=== PATIENT | female | born 1980 | race Caucasian/White ===

== ENCOUNTER 2023-03-22 03:22 | Emergency (ER) | payer OTHER, SELFPAY ==
[2023-03-22] VITALS (30 sets, daily range): BP systolic 83–154; BP diastolic 50–98; PULSE 58–86; RESP 10–21; TEMP 36.9; O2SAT 94–100
--- NOTE | ~2023-03-22 | CT_ITS ---
EXAMINATION: CTA chest PE abdomen pel DATE: 03/22/2023 04:55 INDICATION: Chest and abdominal pain with vomiting TECHNIQUE: Computed tomography (CT) pulmonary angiogram of the chest was performed with 100 mL Omnipa que-350 intravenous contrast. Additional 3D reconstructions utilizing coronal maximum intensity proje ction (MIP) were performed. CT of the abdomen and pelvis was performed with intravenous contrast util izing the same contrast bolus following a short delay. Automated exposure control and iterative recon struction technique were employed. The dose-length product was 794.93 mGy-cm. COMPARISON: None FINDINGS: Chest: Excellent contrast opacification of the pulmonary arteries. There is mild streak artifact from dense contrast in the superior vena cava and right atrium. Mild scattered respiratory motion artifact. No p ulmonary embolism. There is mosaic attenuation throughout the lungs with diffuse groundglass opacitie s throughout the lungs with a few scattered small regions of relative sparing. Calcified nodules in t he right lung along with calcified right hilar lymph nodes consistent with old granulomatous disease. Heart size is normal. No leftward deviation of the ventricular septum to suggest right heart strain. No pericardial effusion. Thoracic aorta is normal in caliber with no dissection. Borderline enlargem ent of the central pulmonary arteries which could be seen with pulmonary arterial hypertension. No pa thologically enlarged thoracic lymphadenopathy. Small sliding-type hiatal hernia. Abdomen/pelvis: Mild intra and extra hepatic biliary ductal dilation with common bile duct measuring up to 11 mm in m aximal diameter without evident distal obstructing stone or mass. There are however multiple gallston es within the nondilated gallbladder. There is mild edematous gallbladder wall thickening versus mini mal pericholecystic fluid. There are a few splenic calcifications consistent with old granulomatous d isease. Pancreas, bilateral adrenal glands and left kidney are normal. Small regions of cortical scar ring at the right kidney likely sequela prior infection or less likely infarction. There are also at least 4 small right renal stones the largest measuring up to 5 mm. No other ureteral stones, left norman al stones or hydronephrosis. Bowels including the appendix are normal. Bladder and anteverted uterus are normal. There are few small anechoic follicles at the c largest on the right measuring 1.8 cm. No free intraperitoneal gas or fluid. No pathologically enlarged abdominal or pelvic lymphadenopathy. M ild polyarticular osteoarthritis of the proximal lumbar facet joints at the bilateral hip and sacroil iac joints. IMPRESSION: 1. Mosaic attenuation throughout the lungs which can be seen with acute or subacute infection, mild p ulmonary edema, partially expiratory phase of imaging with small regions of air trapping related to s mall airway disease or chronic thromboembolic disease although there are no discrete pulmonary emboli identified. 2. Borderline enlargement of the central pulmonary arteries suggestive of pulmonary arterial hyperten tyrel which differential also includes obstructive pulmonary disease, hypoventilation syndrome, mitral valve stenosis and chronic thromboembolic disease. 3. Mild intra and extrahepatic biliary ductal dilation with gallstones within the gallbladder but wit hout evident distal obstructing stone or mass. Correlate with liver function tests and consider furth er evaluation with MRCP. 4. Mild edematous wall thickening versus small amount of pericholecystic fluid at the nondilated gall bladder to more specifically suggest acute cholecystitis. Differential would also include sequela of liver disease, heart failure or other cause of elevated right heart pressures or other cause of gener alized edema forming states. Reviewed, dictated and vicky
--- NOTE | 2023-03-22 03:29 | ECG_ITS ---
Measurements Intervals [place] Rate: 68 P: 59 VT: 121 QRS: 75 QRSD: 86 T: 63 QT: 381 QTc: 405 Interpretive Statements SINUS RHYTHM NORMAL ECG NO PREVIOUS ECG AVAILABLE FOR COMPARISON Electronically Signed On 03-22-2023 14:04:36 [employer] by Sean Sierra M.D.
[2023-03-22] MEDS: PROCHLORPERAZINE EDISYLATE 10 MG/2 ML VIAL IV PUSH (03:34)
[2023-03-22] MEDS: MORPHINE SULFATE (*CRX) 4 MG/ML INJ IV PUSH (03:34)
[2023-03-22] MEDS: SODIUM CHLORIDE 0.9% IV 1,000 ML 999 ML IV CONT ×2 (03:34→06:56)
--- NOTE | 2023-03-22 03:34 | ED.GENADULT ---
HPI - General Adult General Chief complaint: Abdominal Pain Stated complaint: nausea, vomiting, abd pain Time Seen by Provider: 03/22/23 03:24 History of Present Illness HPI narrative: Is a 43-year-old female who presents to emergency department with chief complaint of nausea and vomiting. Patient also reports started having pain in the lower rib section the radiates to her back patient states that she has had episodes of pain before but never had pain this bad and never had significant nausea vomiting patient reports she ate [employer] earlier this evening the patient reports some that she is scheduled to have a oophorectomy later this month. Patient denies fever reports no diarrhea reports she had a normal bowel movement prior to arrival in the emergency department. Patient reports a prior surgical history significant for . And reports that she is undergoing chronic pain management for low back pain. Related Data Allergies Allergy/AdvReac Type Severity Reaction Status Date / Time No Known Allergies Allergy Verified 08/13/15 16:05 Review of Systems Review of Systems: A 10 system review of systems was completed on the patient and is negative except for what is stated in the HPI. Nursing and ancillary documentation was reviewed. Exam Narrative: GENERAL: Well-appearing, well-nourished, and in no acute distress. HEAD: Normocephalic, atraumatic. EYES: PERRLA and EOMI. ENT: Nares clear, no rhinorrhea or epistaxis. Mucous membranes moist. NECK: Supple. CHEST: Clear to auscultation. No respiratory distress. HEART: Regular rate and rhythm. No murmur heard. Normal peripheral pulses. ABDOMEN: Soft, right upper quadrant tenderness, nondistended, normal active bowel sounds. EXTREMITIES: Normal range of motion. No edema. SKIN: Warm, dry, no rash. NEURO: No focal deficits. Alert and oriented x3. PSYCH: Normal mood and affect. Course Vital Signs Vital signs: Vital Signs Temperature 36.9 C 03/22/23 03:23 Pulse Rate 63 03/22/23 03:23 Respiratory Rate 15 03/22/23 03:23 Blood Pressure 154/98 H 03/22/23 03:23 Pulse Oximetry 100 03/22/23 03:23 Oxygen Delivery Room Air 03/22/23 03:23 Temperature 36.9 C 03/22/23 03:23 Pulse Rate 60 03/22/23 07:01 Respiratory Rate 12 03/22/23 07:01 Blood Pressure 97/66 L 03/22/23 07:00 Pulse Oximetry 97 03/22/23 07:01 Oxygen Delivery Room Air 03/22/23 03:23 Medical Decision Making Vital Signs Vital Signs: Vital Signs Temperature 36.9 C 03/22/23 03:23 Pulse Rate 63 03/22/23 03:23 Respiratory Rate 15 03/22/23 03:23 Blood Pressure 154/98 H 03/22/23 03:23 Pulse Oximetry 100 03/22/23 03:23 Oxygen Delivery Room Air 03/22/23 03:23 Temperature 36.9 C 03/22/23 03:23 Pulse Rate 60 03/22/23 07:01 Respiratory Rate 12 03/22/23 07:01 Blood Pressure 97/66 L 03/22/23 07:00 Pulse Oximetry 97 03/22/23 07:01 Oxygen Delivery Room Air 03/22/23 03:23 Lab Data 03/22/23 03:31 03/22/23 03:31 Labs: Lab Results 03/22/23 03/22/23 Range/Units 03:31 05:07 WBC 11.1 H (4.5-10.0) K/mm3 RBC 4.16 L (4.2-5.4) M/mm3 Hgb 13.7 (12.0-15.0) g/dL Hct 42.0 (37.0-47.0) % MCV 101.0 H (80-100) fl MCH 32.9 (26-34) pg MCHC 32.6 (32-36) g/dl RDW 14.2 (11.5-14.5) % Plt Count 224 (150-375) k/mm3 MPV 11.3 H (7.4-10.4) fl Immature Gran % (Auto) 0.4 (0-0.5) % Neut % (Auto) 70.3 (45.5-73.1) % Lymph % (Auto) 17.1 L (18.3-44.2) % [place] % (Auto) 8.9 H (2.6-8.5) % Eos % (Auto) 2.8 (0-4.4) % Baso % (Auto) 0.5 (0.2-1.2) % Lymph # (Auto) 1.90 (0.9-3.2) K/mm3 [place] # (Auto) 1.0 H (0.1-0.6) K/mm3 Eos # (Auto) 0.3 (0-0.3) K/mm3 Baso # (Auto) 0.1 (0.0-0.1) K/mm3 Abs Immat Gran (auto) 0.04 H (0.00-0.031) K/mm3 Absolute Neuts (auto) 7.8 H (1.3-6.7) K/mm3 Absolute Nucleated RBC 0.0 (0.0-0.012) K/mm3 Nucleated RBC
[2023-03-22 03:38] LABS: Basophils Absolute Auto 0.1 K/mm3 (0.0-0.1); Basophils Percent Auto 0.5 % (0.2-1.2); Eosinophils Absolute Auto 0.3 K/mm3 (0-0.3); Eosinophils Percent Auto 2.8 % (0-4.4); Hemoglobin 13.7 g/dL (12.0-15.0); Immature Granulocyte Absolute 0.04 K/mm3 (0.00-0.031); Immature Granulocyte Percent A 0.4 % (0-0.5); Lymphocytes Percent Auto 17.1 % (18.3-44.2); Mean Corpuscular HGB Conc 32.6 g/dl (32-36); Mean Corpuscular Hemoglobin 32.9 pg (26-34); Mean Platelet Volume 11.3 fl (7.4-10.4); Monocytes Percent Auto 8.9 % (2.6-8.5); Neutrophils Absolute Auto 7.8 K/mm3 (1.3-6.7); Neutrophils Percent Auto 70.3 % (45.5-73.1); Platelet Count Result 224 k/mm3 (150-375); Red Blood Count 4.16 M/mm3 (4.2-5.4); Red Cell Distribution Width 14.2 % (11.5-14.5); White Blood Count 11.1 K/mm3 (4.5-10.0)
[2023-03-22 03:50] LABS: INR 0.9; Prothrombin Time 12.9 Seconds (11.1-14.7)
[2023-03-22 03:51] LABS: Partial Thromboplastin Time 28.6 SECONDS (22.3-36.8)
--- NOTE | 2023-03-22 03:52 | PC.NURSE ---
Pt aware of need for urine sample
[2023-03-22 03:59] LABS: Lactic Acid Reflex 1.2 mmol/L (0.7-2.0)
[2023-03-22 04:02] LABS: Alanine Aminotransferase 19 U/L (6-35); Albumin Level 4.1 g/dL (3.5-5.1); Alkaline Phosphatase 102 U/L (38-126); Anion Gap 8 mmol/L (8-16); Aspartate Amino Transferase 28 U/L (14-36); Bilirubin,Total 0.4 mg/dL (0.2-1.3); Blood Urea Nitrogen 9 mg/dL (7-17); Calcium 9.3 mg/dL (8.4-10.2); Carbon Dioxide 27 mmol/L (22-30); Chloride 106 mmol/L (98-107); Estimated CRCL calculation 84 ml/min; Estimated Glomerular Filt Rate > 60; Glucose 120 mg/dL (65-110); Lipase 66 U/L (23-300); Magnesium 2.2 mg/dL (1.6-2.3); Sodium 141 mmol/L (137-145)
[2023-03-22 04:13] LABS: NT Pro B Type Natriuretic Pept 161 pg/mL (19.9-100); Troponin I < 0.012 ng/mL (0.000-0.034)
[2023-03-22 05:27] LABS: Appearance Urine Clear (Clear); Bacteria Urine None Seen /hpf; Bilirubin Urine Negative (Negative); Blood Urine Trace (Negative); Color Urine Yellow (Yellow); Glucose Urine UA Negative (Negative); Ketones Urine Trace mg/dL (Negative); Leukocyte Esterase Ur Negative LEU/UL (Negative); Nitrate Urine Negative (Negative); Non Pathogenic Casts 0-2; Protein Urine Negative (Negative); RBC Urine 0-2 /hpf (0-2); Squamous Epithelial Cell Urine Occasional /hpf (Few); WBC Urine 0-5 /hpf; pH Urine 6.5 (5.0-9.0)
[2023-03-22 05:35] LABS: Specific Grav Ur 1.045 (1.001-1.035)
[2023-03-22 05:36] LABS: Add Urine Microscopic? YES
--- NOTE | 2023-03-22 06:48 | PC.NURSE ---
Dr Boss notified of hypotension. Orders received.
--- NOTE | 2023-03-22 06:54 | PC.NURSE ---
Patient's blood pressure was 83/50, notified Dr. Boss who verbally ordered 1L ns.
--- NOTE | 2023-03-22 07:10 | PC.NURSE ---
Report to CARINA Josue
== END 2023-03-22 08:03 | disposition home or self-care (01) ==
PROVIDERS: Emergency Provider Emergency Medicine
DX: K81.0 Acute cholecystitis (principal); R91.8 Other nonspecific abnormal finding of lung field
CPT/HCPCS: 36415; 71275; 74177; 80053; 81001; 81025; 83605; 83690; 83735; 83880; 84145; 84484; 85025; 85610; 85730; 93005; 96361; 96374; 96375; 99284; J0780; J2270; J7030; Q9967

== ENCOUNTER 2023-03-28 12:40 | Outpatient (CLI) | payer OTHER, SELFPAY ==
[2023-03-28 14:01] LABS: Amylase 68 U/L (30-110)
== END 2023-03-28 12:41 | disposition home or self-care (01) ==
LOC: ANHSURGERY 12:46
PROVIDERS: Visit Provider Surgery
DX: K81.1 Chronic cholecystitis (principal); Z01.818 Encounter for other preprocedural examination
CPT/HCPCS: 36415; 82150; 86850; 86900; 86901

== ENCOUNTER 2023-03-31 03:16 | Day surgery (SDC) | payer OTHER, SELFPAY ==
--- NOTE | 2023-03-27 14:59 | PC.NURSE ---
Report to the Outpatient Waiting Room, entrance under the green pavilion located off [facility], at time ___1000____ on date ___[id number]____. Planned Procedure Time: ____1200____. Time changes happen often and if your time is changed the preop area will call you the afternoon before. - You and your visitor will be asked to self-screen and do not enter if you have any COVID symptoms. - A mask is optional within the hospital at this time. Patients may have clear liquids (water, carbonated beverages, clear teas, apple juice) until 3 hours prior to surgery with a maximum of 20 ounces. - No food from midnight until time of surgery Take the following medications with a SIP of water the morning of surgery: Flagyl, Ciprofloxacin, Hydrocodone DO NOT STOP ANY OF YOUR OTHER PRESCRIPTION MEDICATIONS PRIOR TO SURGERY ?EXCEPT THE FOLLOWING Medications to discontinue per physician __ Md informed patient to not take Methotrexate until post surgery Date to take last dose Please no make-up, nail hebrew, hairspray, perfume, deodorant, or body powder the day of surgery. No jewelry (including any body piercings) or valuables the day of surgery, leave them at home. Please take a shower or bath the night before, or the morning of, surgery with an antibacterial soap. Wear comfortable, loose fitting clothing - Jewelry must be removed prior to entering the operating room. Rings and piercings that are not removed may be cut off. - The hospital will not accept responsibility for valuables. - Please leave all valuables, including medications, at home the day of surgery. If you are going home after surgery, a licensed recycler forklift driver truck driver must drive you home. - NO public transportation without another adult if you receive anesthesia. - We recommend that an adult stay with you for 24 hours following discharge. - We also recommend that you do not drive, make important decision, drink alcoholic beverages, or take any drugs that were not prescribed by your health care provider for at least 24 hours after your discharge time. Follow any additional instructions given to you from your surgeon. If you or anyone in your household have experienced Covid symptoms in the past week, please notify your surgeon or the nurse liaison at the phone number below for possible testing. Telephone instructions given to __Dorothea (patient) and asked if any additional questions and then verbalized understanding. Patient advised to call surgeon office or pre surgery nurse liaison [phone] if any additional questions.
[2023-03-27 15:08] VITALS: BMI 30.3
[2023-03-31] VITALS (9 sets, daily range): BP systolic 111–141; BP diastolic 64–87; PULSE 61–103; RESP 12–20; TEMP 36.1–36.8; O2SAT 100
--- NOTE | 2023-03-31 07:28 | WPDHPUPDATE1 ---
History and Physical Update Update Date/Time: 03/31/23 07:28 History and Physical has been reviewed, including an updated exam of the patient. There are NO changes in the patient's condition. Risks, benefits, and alternatives have been discussed and questions answered. Patient agrees to proceed with procedure.
[2023-03-31] MEDS: ACETAMINOPHEN 500 MG TABLET 1000 MG PO (10:15)
[2023-03-31] MEDS: KETOROLAC 15 MG/ML VIAL (*BKC) IV PUSH (10:42)
--- NOTE | 2023-03-31 11:16 | P.PNAN_ITS ---
Anes - Initial Pre Proc Eval Procedure: Operation Date: 03/31/23 12:00 Proposed Procedures p Laparoscopic Cholecystectomy - Nancy Topete MD Date/Time: 03/31/23 11:16 Surgeon: Nancy Topete MD Pre Op Diagnosis: Chronic Cholecystitis Patient Data Age: 43 Gender: F Height: 1.6 m Weight: 76.5 kg Last Vital Signs Temp 36.8 C 03/31/23 10:27 Pulse 80 03/31/23 10:27 Resp 16 03/31/23 10:27 BP 112/67 03/31/23 10:27 Pulse Ox 100 03/31/23 10:27 O2 Del Method Room Air 03/31/23 10:27 Allergies Allergy/AdvReac Type Severity Reaction Status Date / Time No Known Allergies Allergy Verified 03/31/23 10:11 Home Medications Medication Instructions Recorded Confirmed Type ciprofloxacin HCl 500 mg tablet 500 mg PO Q12H 10 days #20 tabs 03/22/23 03/27/23 Rx hydrocodone 7.5 mg-acetaminophen 1 tablet PO Q6H PRN pain 3 days 03/22/23 03/27/23 Rx 325 mg tablet #12 tabs metronidazole 500 mg tablet 500 mg PO Q8H 10 days #30 tabs 03/22/23 03/27/23 Rx ondansetron 4 mg disintegrating 4 mg PO Q8H PRN nausea and 03/22/23 03/27/23 Rx tablet vomiting #10 tabs methotrexate sodium 2.5 mg tablet 15 mg PO WEEKLY 03/27/23 03/27/23 History Patient hx anesthesia problems: none Family hx anesthesia problems: none Results Review: All pre-operative results and documents have been reviewed as part of the pre- operative evaluation. [facility] Surgical History Surgical History delivery delivered H/O LEEP History of tubal ligation Family History Family History Other Cancer Diabetes mellitus Social History Social History Smoking packs per day: 0.5 Smoking cigarettes per day: 10.0 Years smoked: 30 Smoking pack-years: 15.00 Smoking status: Current every day smoker Tobacco type: cigarettes Second hand tobacco smoke exposure: Yes Alcohol intake: never Substance use: current Substance use type: does not use Living arrangements: with family Spiritual care concerns: No Anes - Eval Final PreProcedure Day of Procedure 03/31/23 11:16 Patient weight: overweight Heart: regular rate and rhythm Lungs: decreased breath sounds Airway: Mallampati scale class II Neurological: alert and oriented Last oral intake: >/= 8 hours ASA classification: III Emergent: no Anesthetic plan: proceed Anesthesia type and monitoring: general ETT and standard monitoring Results Review: All pre-operative results and documents have been reviewed as part of the pre- operative evaluation. Informed Consent: The patient's anesthetic plan and its attendant risks and benefits were discussed with the patient/family/POA. Questions were solicited and answers provided to the satisfaction of the patient/family/POA.
[2023-03-31] MEDS: LACTATED RINGERS 1,000 ML 30 ML IV CONT ×2 (11:40→12:38)
[2023-03-31] MEDS: ceFAZolin 2 GM/D5W 50 ML 2 GM/50 ML BAG IVPB (11:42)
[2023-03-31] MEDS: BUPIVACAINE/EPINEPHRINE 0.5% 50 ML VIAL 30 ML INFILTRATE (12:02)
--- NOTE | 2023-03-31 12:39 | W.PM.PROC2 ---
Procedure Note - Detailed Date of Procedure 03/31/23 Pre-op Diagnosis chronic cholecystitis, cholelithiasis Post-op Diagnosis Same Procedure Performed Laparoscopic cholecystectomy Surgeon Nancy Topete MD Anesthesia General Indications 43-year-old female presented to the office complaining of postprandial right upper quadrant abdominal pain associated with nausea and vomiting. Workup including imaging significant for cholecystitis, cholelithiasis. Findings Cholecystitis with cholelithiasis Description of Procedure The patient was taken to the operating room placed in the supine position. After adequate induction of general anesthesia, the patient was prepped and draped in normal sterile fashion. A time-out was then performed to verify the patient's identity as well as the procedure being performed. I then made a 5 mm incision in the infraumbilical region. Through this, a Veress needle was placed into the peritoneal cavity and CO2 gas was then insufflated. After adequate pneumoperitoneum was achieved, the Veress needle was removed and a 5 mm optiview trocar was placed through this incision under direct visualization. I then placed the laparoscope through this trocar site and under direct visualization placed a further 12 mm subxiphoid port as well as 2 additional 5 mm ports in the right upper abdomen. The gallbladder was then identified and was noted to be moderately inflamed, distended, and full of gallstones. I was able to place a grasper at the dome of the gallbladder and this was retracted anterior and cephalad up over the liver. A 2nd retractor was then placed at the infundibulum and retracted laterally, this allowed visualization of the triangle of Calot. I then was able to visualize the cystic duct in its entirety from its proximal insertion into the gallbladder, to its distal junction with the common hepatic/common bile duct junction. At this point, I carefully skeletonized the proximal cystic duct with the [place] dissector. I then clipped and transected the proximal cystic duct. Next I visualized the cystic artery. Again the artery was skeletonized, clipped, and transected. I then used the Bovie cautery to take down the peritoneal attachments of the gallbladder off the liver bed. Once the gallbladder specimen was completely detached, an endo-pouch was placed through the 12 mm port site. I then placed the gallbladder specimen into the Endo pouch and removed the endo-pouch from the 12 mm port site. Of note, we did have to enlarge the 12 mm port slightly to allow extraction of the specimen. The specimen will now be sent to pathology for further review. I then copiously irrigated the right upper quadrant. Hemostasis was noted in the liver bed, the clips were noted to be in good position on both the cystic duct stump and the cystic artery stump. No other pathology was noted in the right upper quadrant. I then moved the laparoscope to the subxiphoid port. No iatrogenic injury or other pathology was noted in the lower abdomen. I then closed the 12 mm trocar site under direct visualization using the Herbie cone and 0 Vicryl suture. At this point, the abdomen was desufflated and all ports removed. All port sites were then closed with 4.O Monocryl subcuticular sutures. Dermabond was placed on each incision. The patient tolerated the procedure well, was extubated in the operating room postoperative and will be transferred to the recovery room in stable condition Estimated Blood Loss 10 Drains No Packing No Pathology Yes Complications No immediate complications Condition Stable Disposition PACU [facility] Billing Surgery - Charge Forward: Surgery Billing
[2023-03-31] MEDS: fentaNYL CITRATE INJ (*CRX) 100 MCG/2 ML VIAL 25 MCG IV PUSH ×6 (12:57→13:23)
--- NOTE | 2023-03-31 13:18 | SUR.PHASEI ---
1316: Simple mask removed.
[2023-03-31] MEDS: oxyCODONE HCL (*CRX) 5 MG TAB IR PO (14:05)
== END 2023-03-31 14:45 | disposition home or self-care (01) ==
PROVIDERS: Visit Provider Surgery
PROC: 0FT44ZZ Resection of Gallbladder, Percutaneous Endoscopic Approach (ICD-10-PCS; CPT 47562; principal; 2023-03-31 12:00)
DX: K80.10 Calculus of gallbladder with chronic cholecystitis without obstruction (principal); M06.9 Rheumatoid arthritis, unspecified; Z79.631 Long term (current) use of antimetabolite agent; F17.210 Nicotine dependence, cigarettes, uncomplicated
CPT/HCPCS: 47562; 88304; A9270; J0690; J1100; J1885; J2250; J2405; J2704; J3010; J7120

== ENCOUNTER 2023-04-11 10:04 | Outpatient (CLI) | payer OTHER, SELFPAY ==
--- NOTE | ~2023-04-11 | CT_ITS ---
EXAMINATION: CT abdomen wo con DATE: 04/11/2023 10:25 INDICATION: Upper abdominal pain TECHNIQUE: Computed tomography (CT) of the abdomen was performed without intravenous contrast. The do se-length product (DLP) was 245.48 mGy-cm. Automated exposure control and iterative reconstruction te chnique were employed. COMPARISON: 03/22/2023 FINDINGS: The lung bases are clear. The heart size is normal. There is a small amount of subcutaneous fluid anteriorly in the midline chest near the subxiphoid incision site. There is a questionable sma ll midline hernia at the site containing fat. Punctate calcifications in an otherwise normal spleen l ikely represent healed granulomatous disease. The liver, pancreas, and adrenal glands are normal. Lyric nges of interval cholecystectomy are noted. There is a trace amount of fluid in the gallbladder fossa . Stones of the left kidney upper pole measure up to 5 mm and are seen adjacent to an area of cortica l scarring. There is a 3 mm stone of the right kidney lower pole. The left kidney is unremarkable. Th ere are no pathologically enlarged abdominal lymph nodes. IMPRESSION: 1. Small amount of subcutaneous fluid anteriorly in the midline chest are the subxiphoid incision sit e with possible tiny incision site hernia containing fat. Reviewed, dictated and finalized at location B. E STAR IMPRESSION: 1. Small amount of subcutaneous fluid anteriorly in the midline chest are the s ubxiphoid incision site with possible tiny incision site hernia containing fat.
== END 2023-04-11 10:05 | disposition home or self-care (01) ==
PROVIDERS: Visit Provider Surgery
DX: R10.10 Upper abdominal pain, unspecified (principal)
CPT/HCPCS: 74150

== ENCOUNTER 2024-01-08 23:20 | Day surgery (SDC) | payer OTHER, SELFPAY ==
--- NOTE | ~2024-01-08 | XR_ITS ---
EXAMINATION: XR retrograde pyelo w/stent RT DATE: 01/09/2024 17:02 INDICATION: Right ureteral stone. TECHNIQUE: 4 intraoperative fluoroscopic views of the abdomen and pelvis were obtained. I was not pre sent. Fluoroscopy exposure time was 8 seconds. COMPARISON: CT abdomen pelvis 01/09/2024 FINDINGS: The right-sided retrograde pyelogram demonstrates mild hydronephrosis and hydroureter. The final images demonstrate a right internal ureteral stent in expected position. Surgical clips in the right upper quadrant are likely from cholecystectomy. IMPRESSION: 1. Right internal ureteral stent in expected position. Reviewed, dictated and finalized at location A.
--- NOTE | ~2024-01-08 | CT_ITS ---
CT of the Abdomen and Pelvis: Indication: Abdominal pain Technique: 2.5 mm axial scans were obtained through the abdomen and pelvis following intravenous adm inistration of 100 cc of Omnipaque 350. Dose reduction technique was used on this scan by utilizing a utomated exposure control and iterative reconstruction technique. The dose-length product (DLP) was 9 54.22 mGy-cm. COMPARISON: 04/11/2023 Findings: Scans through the lung bases are unremarkable. The liver, spleen, pancreas, adrenals and left kidney are within normal limits. Cholecystectomy clips are present. A few small nonobstructing right renal stones are present, measuring 3 mm. There is an area of cortical scarring at the upper pole the right kidney. There is a 6 x 4 mm stone at the distal right ureter/right UVJ, with mild right hydroureter.. No evidence of aortic aneurysm. No lymphadeno jessica. No bowel obstruction or bowel wall thickening. There is no evidence to suggest acute appendicitis. Images through the pelvis were performed. No adnexal mass seen. Urinary bladder otherwise unremarkabl e. No ascites. Impression: 6 x 4 mm distal right ureteral stone/right UVJ stone, with mild right hydroureter. A few additional small nonobstructing right renal stones are also present. Reviewed, dictated and finalized at location . Impression: 6 x 4 mm distal right ureteral stone/right UVJ stone, with mild right hydrouret er. A few additional small nonobstructing right renal stones are also present.
[2024-01-08 23:27] VITALS: BP 125/91; PULSE 87; RESP 20; TEMP 36.9; O2SAT 96
[2024-01-09] VITALS (10 sets, daily range): BP systolic 92–156; BP diastolic 60–97; PULSE 58–83; RESP 12–22; TEMP 36.3–36.7; O2SAT 94–100
[2024-01-09 05:50] LABS: Basophils Absolute Auto 0.1 K/mm3 (0.0-0.1); Basophils Percent Auto 0.5 % (0.2-1.2); Eosinophils Absolute Auto 0.3 K/mm3 (0-0.3); Eosinophils Percent Auto 2.4 % (0-4.4); Hematocrit 44.8 % (37.0-47.0); Hemoglobin 15.1 g/dL (12.0-15.0); Immature Granulocyte Absolute 0.09 K/mm3 (0.00-0.031); Immature Granulocyte Percent A 0.6 % (0-0.5); Lymphocytes Absolute Auto 2.81 K/mm3 (0.9-3.2); Mean Corpuscular HGB Conc 33.7 g/dl (32-36); Mean Corpuscular Hemoglobin 31.5 pg (26-34); Mean Corpuscular Volume 93.3 fl (80-100); Mean Platelet Volume 10.5 fl (7.4-10.4); Monocytes Absolute Auto 1.2 K/mm3 (0.1-0.6); Monocytes Percent Auto 8.3 % (2.6-8.5); Neutrophils Absolute Auto 9.6 K/mm3 (1.3-6.7); Neutrophils Percent Auto 68.2 % (45.5-73.1); Platelet Count Result 257 k/mm3 (150-375); Red Cell Distribution Width 12.2 % (11.5-14.5)
[2024-01-09 05:51] LABS: BEDSIDEPREGUCG Negative (Negative)
[2024-01-09 06:00] LABS: Alanine Aminotransferase 19 U/L (6-35); Albumin Level 3.9 g/dL (3.5-5.1); Alkaline Phosphatase 108 U/L (38-126); Anion Gap 8 mmol/L (4-12); Aspartate Amino Transferase 25 U/L (14-36); Bilirubin,Total 0.5 mg/dL (0.2-1.3); Blood Urea Nitrogen 10 mg/dL (7-17); Calcium 8.6 mg/dL (8.4-10.2); Carbon Dioxide 24 mmol/L (22-30); Chloride 104 mmol/L (98-107); Estimated CRCL calculation 86 ml/min; Estimated Glomerular Filt Rate > 60; Glucose 114 mg/dL (65-110); Lipase 70 U/L (23-300); Potassium 3.7 mmol/L (3.4-5.0); Sodium 136 mmol/L (137-145)
[2024-01-09 06:14] LABS: Add Urine Microscopic? YES; Appearance Urine Cloudy (Clear); Bacteria Urine None Seen /hpf; Bilirubin Urine Negative (Negative); Blood Urine 3+ (Negative); Color Urine Dark Yellow (Yellow); Glucose Urine UA Negative (Negative); Ketones Urine Trace mg/dL (Negative); Leukocyte Esterase Ur Trace LEU/UL (Negative); Mucus Urine Present /lpf; Nitrate Urine Negative (Negative); Protein Urine 1+ mg/dL (Negative); RBC Urine 51-100 /hpf (0-2); Specific Grav Ur 1.027 (1.001-1.035); Squamous Epithelial Cell Urine Few /hpf (Few); WBC Urine 21-50 /hpf (0-3); pH Urine 5.5 (5.0-9.0)
--- NOTE | 2024-01-09 07:16 | ED.ABDPAIN ---
HPI - Abdominal Pain General Chief Complaint: Abdominal Pain Stated Complaint: abd pain Time Seen by Provider: 01/09/24 06:59 History of Present Illness HPI narrative: 43-year-old female history of laparoscopic cholecystectomy and ovarian cysts presented to the emergency department with sudden onset right lower quadrant abdominal pain since last night. Patient was lying down in bed which she started noticing a sudden onset pain in her right lower quadrant gradually got worse. She has been feeling some fevers and chills but no measurable temperature at home. No associated nausea vomiting, constipation. Does feel like she is having some urgency with incomplete bladder emptying. Has a history of ovarian cysts but more so on the left side. No laparoscopic procedures on her ovaries. Was otherwise in her normal state of health. No chest pain, shortness a breath, headache, vision changes, dysuria, hematuria, vaginal discharge vaginal bleeding. Denies any chance of . Related Data Home Medications Medication Instructions Recorded Confirmed norethindrone (contraceptive) 0.35 mg 01/09/24 mg tablet Allergies Allergy/AdvReac Type Severity Reaction Status Date / Time adhesive tape Allergy Intermediate Rash Verified 01/09/24 13:42 Review of Systems Review of Systems: As reviewed above in HPI [facility] Surgical History Surgical History delivery delivered H/O LEEP History of tubal ligation Family History Family History Other Cancer Diabetes mellitus Social History Social History Smoking packs per day: 0.5 Smoking cigarettes per day: 10.0 Years smoked: 30 Smoking pack-years: 15.00 Smoking status: Current every day smoker Tobacco type: cigarettes Second hand tobacco smoke exposure: Yes Alcohol intake: never Substance use: never Substance use type: does not use Living arrangements: with family Spiritual care concerns: No Exam Narrative: GENERAL: Well appearing, in pain but not in acute distress HEAD: [Normocephalic, atraumatic.] EYES: [PERRLA and EOMI.] ENT: Nares clear, no rhinorrhea or epistaxis. Mucous membranes moist. NECK: Supple. CHEST: [Clear to auscultation. No respiratory distress.] HEART: [Regular rate and rhythm]. No murmur heard. [Normal peripheral pulses.] ABDOMEN: [Soft, nondistended], tender to palpation right lower quadrant with positive psoas and obturator sign, [No rigidity or guarding] no suprapubic tenderness, no left-sided tenderness or guarding. EXTREMITIES: Normal range of motion. [No edema.] SKIN: Warm, dry, no rash. NEURO: [No focal deficits]. Alert and oriented [x3.] PSYCH: [Normal mood and affect.] Course Vital Signs Vital signs: Vital Signs Temperature 36.9 C 01/08/24 23:27 Pulse Rate 87 01/08/24 23:27 Respiratory Rate 20 01/08/24 23:27 Blood Pressure 125/91 H 01/08/24 23:27 Pulse Oximetry 96 01/08/24 23:27 Oxygen Delivery Room Air 01/08/24 23:27 Temperature 36.7 C 01/09/24 10:57 Pulse Rate 68 01/09/24 10:57 Respiratory Rate 22 H 01/09/24 10:57 Blood Pressure 92/60 L 01/09/24 10:57 Pulse Oximetry 94 01/09/24 10:57 Oxygen Delivery Room Air 01/08/24 23:27 MDM - Abdominal Pain MDM Narrative Medical decision making narrative: 43-year-old female presenting with right lower quadrant abdominal pain sudden-onset this last night. She is afebrile with normal reassuring vital signs. Examination shows right lower quadrant tenderness with positive psoas and obturator sign. Differential diagnosis includes appendicitis, ovarian pathology such as ovarian cyst with left likely ovarian torsion given her well appearance and lack of significant mental anomalies. Patient denies any chance of but is on the
[2024-01-09] MEDS: LACTATED RINGERS 1,000 ML 999 ML IV CONT (07:34)
[2024-01-09] MEDS: MORPHINE SULFATE (*CRX) 4 MG/ML INJ 6 MG IV PUSH (07:35)
[2024-01-09] MEDS: ONDANSETRON INJ 4 MG/2 ML VIAL IV PUSH (07:35)
--- NOTE | 2024-01-09 09:06 | WPDURCON ---
Assessment and Plan Assessment and plan (1) Right ureteral stone: Code(s): N20.1 - Calculus of ureter Status: Acute Assessment and Plan: 6 x 4 mm right UVJ stone with mild hydronephrosis. Will plan for cystoscopy with right ureteroscopy, possible laser lithotripsy, possible stone extraction, and possible right ureteral stent placement this afternoon with Dr. Morales. Discussed details, risks and benefits of procedure with patient and she is agreeable to proceed. (2) Abnormal urinalysis: Code(s): R82.90 - Unspecified abnormal findings in urine Status: Acute Assessment and Plan: UA abnormal, however patient has no acute urinary symptoms. Urine culture is pending at this time. She has been started on IV ceftriaxone while awaiting results. Urology Consult Note HPI Date Seen: 01/09/24 Primary Care Provider: UNKNOWN,DOCTOR Consult Narrative Narrative: Dorothea Cortez is a 43 year old female with no prior urologic history who is being seen in consultation for right UVJ stone. She reports that last night around 9:30 p.m. she had acute onset of right low back pain that radiated to the right lower quadrant. She had no associated nausea, vomiting, fever, or chills. No associated urinary symptoms. She presented to the emergency department early this morning for evaluation of these symptoms. On arrival, she was afebrile and her signs were stable. WBC minimally elevated at 14.0, creatinine within normal limits at 0.8, UA abnormal with 3+ blood, trace leukocytes, 21-50 WBC. Urine culture is pending at this time. A CT of her abdomen/pelvis demonstrated a 6 x 4 mm right UVJ stone with mild hydronephrosis as well as nonobstructing right renal stones. At the time of my evaluation, the patient is more comfortable. Pain is better controlled at this time. She complains frequency denies dysuria, hematuria, nausea, or vomiting. Review of Systems Review of Systems: All systems reviewed & are unremarkable except as noted in HPI and below PMFSH Surgical History Surgical History delivery delivered H/O LEEP History of tubal ligation Family History Family History Other Cancer Diabetes mellitus Social History Social History Smoking packs per day: 0.5 Smoking cigarettes per day: 10.0 Years smoked: 30 Smoking pack-years: 15.00 Smoking status: Current every day smoker Tobacco type: cigarettes Second hand tobacco smoke exposure: Yes Alcohol intake: never Substance use: never Substance use type: does not use Living arrangements: with family Spiritual care concerns: No Meds Home Medications and Allergies Home Medications Medication Instructions Recorded Confirmed Type hydrocodone 7.5 mg-acetaminophen 1 tablet PO Q6H PRN pain 3 days 03/22/23 07/29/23 Rx 325 mg tablet #12 tabs Allergies Allergy/AdvReac Type Severity Reaction Status Date / Time adhesive tape Allergy Intermediate Rash Verified 07/29/23 13:25 Vital Signs Vital Signs - 24 hr 01/08/24 23:27 01/09/24 02:50 01/09/24 05:45 Temperature 98.5 F 97.6 F Pulse Rate 87 81 66 Respiratory Rate 20 16 18 Blood Pressure 125/91 H 156/97 H 148/72 H Pulse Oximetry 96 97 99 Oxygen Delivery Room Air 01/09/24 07:08 Temperature 97.9 F Pulse Rate 83 Respiratory Rate 18 Blood Pressure 121/85 Pulse Oximetry 97 Oxygen Delivery Exam Narrative: General: Awake, alert, comfortable, no acute distress HEENT: Normocephalic, atraumatic, sclerae anicteric Respiratory: Normal respiratory effort, no accessory muscle use Abdomen: Nondistended, soft, nontender Skin: Normal coloration, warm and dry Neurologic: No focal neuro deficits noted Psychiatric: Appropriate mood and affect, judgment and insig
[2024-01-09] MEDS: HYDROmorphone HCL INJ (*CRX) 1 MG/ML SYR IV PUSH (09:14)
[2024-01-09] MEDS: LACTATED RINGERS 1,000 ML 30 ML IV CONT ×3 (13:25→17:29)
--- NOTE | 2024-01-09 14:09 | WPDHPUPDATE1 ---
History and Physical Update Update Date/Time: 01/09/24 14:09 History and Physical has been reviewed, including an updated exam of the patient. There are NO changes in the patient's condition. Risks, benefits, and alternatives have been discussed and questions answered. Patient agrees to proceed with procedure. Proceed with cystoscopy, right retrograde pyelogram, right ureteroscopy with holmium laser, stone extraction, stent placement
--- NOTE | 2024-01-09 15:04 | WPDANESEPPF ---
Anes - Initial Pre Proc Eval Procedure: Operation Date: 01/09/24 15:00 Proposed Procedures p Cystoscopy, Right Ureteroscopy, Possible Right Retrograde Pyelogram, Possible Right Stone Extraction, Possible Right Stent Placement, Possible Holmium Laser Procedure - Jamie Morales MD Date/Time: 01/09/24 15:04 Surgeon: Jamie Morales MD Pre Op Diagnosis: abd pain Patient Data Age: 43 Gender: F Height: 1.6 m Weight: 90.26 kg Last Vital Signs Temp 98.1 F 01/09/24 10:57 Pulse 68 01/09/24 10:57 Resp 22 H 01/09/24 10:57 BP 92/60 L 01/09/24 10:57 Pulse Ox 94 01/09/24 10:57 O2 Del Method Room Air 01/08/24 23:27 Allergies Allergy/AdvReac Type Severity Reaction Status Date / Time adhesive tape Allergy Intermediate Rash Verified 01/09/24 13:42 Home Medications Medication Instructions Recorded Confirmed Type norethindrone (contraceptive) 0.35 mg 01/09/24 History mg tablet Laboratory Tests 01/09/24 01/09/24 01/09/24 05:43 05:47 05:49 WBC 14.0 H K/mm3 (4.5-10.0) RBC 4.80 M/mm3 (4.2-5.4) Hgb 15.1 H g/dL (12.0-15.0) Hct 44.8 % (37.0-47.0) MCV 93.3 fl (80-100) MCH 31.5 pg (26-34) MCHC 33.7 g/dl (32-36) RDW 12.2 % (11.5-14.5) Plt Count 257 k/mm3 (150-375) MPV 10.5 H fl (7.4-10.4) Immature Gran % (Auto) 0.6 H % (0-0.5) Neut % (Auto) 68.2 % (45.5-73.1) Lymph % (Auto) 20.0 % (18.3-44.2) [place] % (Auto) 8.3 % (2.6-8.5) Eos % (Auto) 2.4 % (0-4.4) Baso % (Auto) 0.5 % (0.2-1.2) Lymph # (Auto) 2.81 K/mm3 (0.9-3.2) [place] # (Auto) 1.2 H K/mm3 (0.1-0.6) Eos # (Auto) 0.3 K/mm3 (0-0.3) Baso # (Auto) 0.1 K/mm3 (0.0-0.1) Abs Immat Gran (auto) 0.09 H K/mm3 (0.00-0.031) Absolute Neuts (auto) 9.6 H K/mm3 (1.3-6.7) Absolute Nucleated RBC 0.000 K/mm3 (0.0-0.012) Nucleated RBC % 0.0 % (0.0-0.2) Sodium 136 L mmol/L (137-145) Potassium 3.7 mmol/L (3.4-5.0) Chloride 104 mmol/L (98-107) Carbon Dioxide 24 mmol/L (22-30) Anion Gap 8 mmol/L (4-12) BUN 10 mg/dL (7-17) Creatinine 0.80 mg/dL (0.7-1.0) Estim Creat Clear Calc 86 ml/min Estimated GFR > 60 (59 - ) Glucose 114 H mg/dL (65-110) Calcium 8.6 mg/dL (8.4-10.2) Total Bilirubin 0.5 mg/dL (0.2-1.3) AST 25 U/L (14-36) ALT 19 U/L (6-35) Alkaline Phosphatase 108 U/L (38-126) Total Protein 7.0 g/dL (6.3-8.2) Albumin 3.9 g/dL (3.5-5.1) Lipase 70 U/L (23-300) Urine Color Dark yellow (Yellow) Urine Appearance Cloudy H (Clear) Urine pH 5.5 (5.0-9.0) Ur Specific [place] 1.027 (1.001-1.035) Urine Protein 1+ H mg/dL (Negative) Urine Glucose (UA) Negative mg/dL (Negative) Urine Ketones Trace H mg/dL (Negative) Ur Blood (Man) 3+ H (Negative) Urine Nitrate Negative (Negative) Urine Bilirubin Negative (Negative) Urine Urobilinogen 1.0 mg/dL (<2.0) Leukocyte Esterase Rfl Trace H JESSICA/UL (Negative) Urine RBC 51-100 H /hpf (0-2) Urine WBC 21-50 H /hpf (0-3) Ur Squamous Epith Cells Few /hpf (Few) Urine Bacteria None seen /hpf Urine Casts 6-10 Urine Mucus Present /lpf POC Urine HCG, Qual Negative (Negative) Patient hx anesthesia problems: none Family hx anesthesia problems: none Results Review: All pre-operative results and documents have been reviewed as part of the pre-operative evaluation. [facility] Surgical History Surgical History (Revie
[2024-01-09] MEDS: KETOROLAC 30 MG/ML VIAL (*BKC) IV PUSH (16:57)
--- NOTE | 2024-01-09 17:00 | P.OP_ITS ---
Procedure Note - Detailed Date of Procedure 01/09/24 Pre-op Diagnosis Right ureteral calculus 6 mm Post-op Diagnosis Same Procedure Performed Past cystoscopy, right retrograde, right ureteroscopy with holmium laser, stone extraction, stent placement 4.8 Lebanese contour Surgeon Jamie Morales MD Anesthesia General Description of Procedure Patient is taken the operative suite correctly identified. Once anesthesia was obtained she was placed in dorsal lithotomy position prepped draped usual sterile fashion. Twenty-two Lebanese scope was inserted in the bladder. Right ureteral orifice was cannulated with a guidewire. He was dilated with an 8/10 dilator. Mini flexible ureteral scope was then inserted. The stone was too large to retrieve 1 piece. Two hundred micron fiber was used to laser the stone. Larger stones were sent for analysis. Pyelogram was then performed confirm placement of the stent. 4.8 Lebanese contour stent was then placed with the proximal end coiled in the renal pelvis and the distal bladder. 2% viscous lidocaine was inserted urethra. Patient is taken recovery stable condition. She will follow-up in a week's time for stent removal. This completes dictation. Please send a copy of op note to my office. Estimated Blood Loss 0 Drains Yes Packing No Pathology Yes Complications No immediate complications Condition Stable Disposition PACU
[2024-01-09] MEDS: oxyCODONE HCL (*CRX) 5 MG TAB IR PO (18:08)
== END 2024-01-09 18:50 | disposition home or self-care (01) ==
LOC: ANHED 01-09 08:51 → ANHSURGERY 01-09 13:06
PROVIDERS: Emergency Medicine; Emergency Provider Student in an Organized Health Care Education/Training Program; Visit Provider Urology
PROC: (CPT 52352; principal; 2024-01-09 15:00)
DX: N20.1 Calculus of ureter (principal); F17.210 Nicotine dependence, cigarettes, uncomplicated; E66.9 Obesity, unspecified; Z68.35 Body mass index [BMI] 35.0-35.9, adult; Z79.891 Long term (current) use of opiate analgesic; Z98.890 Other specified postprocedural states; Z90.49 Acquired absence of other specified parts of digestive tract; Z98.51 Tubal ligation status; Z80.9 Family history of malignant neoplasm, unspecified
CPT/HCPCS: 52352; 52332; 36415; 74177; 74420; 80053; 81001; 81025; 82365; 83690; 85025; 87086; 87088; 88300; 96361; 96365; 96366; 96375; 99285; A9270; C1769; C2617; J0690; J0696; J1100; J1170; J1885; J2250; J2270; J2405; J2704; J3010; J7120; Q9966; Q9967

== ENCOUNTER 2024-02-16 09:57 | Outpatient (CLI) | payer OTHER, SELFPAY ==
--- NOTE | ~2024-02-16 | US_ITS ---
EXAMINATION: US retroperitoneal comp DATE: 02/16/2024 11:41 INDICATION: Right ureteral stone TECHNIQUE: Multiple ultrasound grayscale images of the kidneys were obtained. COMPARISON: None. FINDINGS: The right kidney measures 10.0 x 4.8 x 3.9 cm. The left kidney measures 11.6 x 4.7 x 4.6 cm. The kidn eys demonstrate normal echogenicity. There is no hydronephrosis in either kidney. No stones identifi ed. The bladder is normal with bilateral ureteral jets visualized on color Doppler. IMPRESSION: 1. Normal kidneys without hydronephrosis. Reviewed, dictated and finalized at location A.
== END 2024-02-16 09:58 | disposition home or self-care (01) ==
LOC: ANHIMG 10:00
PROVIDERS: Visit Provider Urology
DX: N20.1 Calculus of ureter (principal)
CPT/HCPCS: 76770

== ENCOUNTER 2024-12-22 09:43 | Outpatient (CLI) | payer OTHER, SELFPAY ==
[2024-12-22 18:32] LABS: Hematocrit 48.0 % (37.0-47.0); Hemoglobin 15.2 g/dL (12.0-15.0); Mean Corpuscular HGB Conc 31.7 g/dl (32-36); Mean Corpuscular Hemoglobin 31.5 pg (26-34); Mean Corpuscular Volume 99.4 fl (80-100); Platelet Count Result 256 k/mm3 (150-375); Red Blood Count 4.83 M/mm3 (4.2-5.4); White Blood Count 12.3 K/mm3 (4.5-10.0)
[2024-12-22 18:44] LABS: Alanine Aminotransferase 23 U/L (6-35); Albumin Level 4.2 g/dL (3.5-5.1); Alkaline Phosphatase 129 U/L (38-126); Anion Gap 6 mmol/L (4-12); Aspartate Amino Transferase 79 U/L (14-36); Bilirubin,Total 0.6 mg/dL (0.2-1.3); Blood Urea Nitrogen 10 mg/dL (7-17); Calcium 9.1 mg/dL (8.4-10.2); Carbon Dioxide 27 mmol/L (22-30); Chloride 106 mmol/L (98-107); Cholesterol 118 mg/dL (0-200); Estimated Glomerular Filt Rate > 60; Glucose 80 mg/dL (65-110); HDL Direct 34 mg/dL; Potassium 4.8 mmol/L (3.4-5.0); Sodium 139 mmol/L (137-145); Total Protein 7.3 g/dL (6.3-8.2); Triglycerides 79 mg/dL (<150)
[2024-12-22 18:55] LABS: Free T4 Free Thyroxine 1.30 ng/dL (0.78-2.19); Hemoglobin A1C 5.1 % (<5.7)
[2024-12-22 19:16] LABS: Thyroid Stimulating Hormone 0.837 uIU/mL (0.465-4.680)
[2024-12-24 13:08] LABS: ANA by IFA Rfx Titer/Pattern Negative (.)
== END 2024-12-22 09:44 | disposition home or self-care (01) ==
LOC: ANHBWCLAB 09:46
PROVIDERS: PCP Nurse Practitioner Adult Health; Visit Provider Nurse Practitioner Adult Health
DX: Z00.00 Encounter for general adult medical examination without abnormal findings (principal); M06.9 Rheumatoid arthritis, unspecified
CPT/HCPCS: 36415; 80053; 80061; 83036; 84439; 84443; 85027; 85652; 86038; 86376

== ENCOUNTER 2024-12-29 09:51 | Outpatient (CLI) | payer OTHER, SELFPAY ==
[2024-12-29 19:18] LABS: Hematocrit 49.1 % (37.0-47.0); Hemoglobin 15.3 g/dL (12.0-15.0); Immature Granulocyte Percent A 0.5 % (0-0.5); Lymphocytes Absolute Auto 1.66 K/mm3 (0.9-3.2); Mean Corpuscular HGB Conc 31.2 g/dl (32-36); Mean Corpuscular Hemoglobin 31.8 pg (26-34); Mean Corpuscular Volume 102.1 fl (80-100); Nucleated Red Blood Cells Absolute Auto 0.000 K/mm3 (0.0-0.012); Nucleated Red Blood Cells Perc 0.0 % (0.0-0.2); Platelet Count Result 267 k/mm3 (150-375); Red Blood Count 4.81 M/mm3 (4.2-5.4); White Blood Count 12.8 K/mm3 (4.5-10.0)
== END 2024-12-29 09:52 | disposition home or self-care (01) ==
LOC: ANHBWCLAB 09:55
PROVIDERS: PCP Nurse Practitioner Adult Health; Visit Provider Nurse Practitioner Adult Health
DX: E86.0 Dehydration (principal)
CPT/HCPCS: 36415; 85025

== ENCOUNTER 2025-01-25 15:35 | Outpatient (CLI) | payer OTHER, SELFPAY ==
--- OUTSIDE RECORDS SUMMARY | 2025-01-11 09:30 | XMS_ITS | Encounter Summary ---
Author Organization [facility] Address [address] [place] [address] Phone Care Team Providers Care Collar Runner Name Role Phone Anne Joseph NP Primary Care Provider [phone] Encounter Details Date Type Department Care Team (Late st Contact Info) Description 01/11/2025 9:30 AM CDT Office Visit [facility] Medicine Rheumatology [address] [facility] [address] 5[address] [place] [address] [place] [address] Greg Morse MD [address] [id number] Psoriatic arthritis (HCC) (Primary Dx) Social History Tobacco Use Types Packs/Day Years Used Date Smoking Tobacco: Every Day Cigarettes 0.5 24 Smokeless Tobacco: Never Tobacco Cessation:Ready to Q uit: Not Asked; Counseling Given: Not Answered Comments:Has decrease down to 6 day Alcohol Use Standard Drinks/Week Comments Yes 0 (1 standard drink = 0.6 oz pur e alcohol) very rarely AUDIT-C Answer Date Recorded Q1: How often do you have a drink containing alc ohol? 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 Gender Identity Female 05/26/2020 1:50 PM WRECKER DRIVER Sexual Orientation Straight 05/26/2020 1: 50 PM WRECKER DRIVER documented as of this encounter Last Filed Vital Signs Vital Sign Reading Time Taken Comments Blood Pressure 131/86 01/11/2025 9:48 AM CDT Pulse 81 01/11/2025 9:48 AM CDT Temperature 36.8 C (98.2 F) 01/11/2025 9:48 AM CDT Respiratory Rate - - Oxygen Saturation - - Inhaled Oxygen Concentration - - Weight 85.8 kg (189 lb 3.2 oz) 01/11/2025 9:48 A M CDT Height 157.5 cm (5' 2) 01/11/2025 9:48 AM CDT Body Mass Index 34.61 01/11/2025 9:48 AM CDT documented in this encounter Patient Instructions * Patient Instructions* Greg Morse MD - 01/11/2025 9:30 AM CDT Dear Ms. Manzano, You were seen in rheumatology clinic for follow up. Your psoriatic arthritis is active, and we wantto restart methotrexate. I will order methotrexate for you. You will need a CBC and CMP every 3 months for lab monitoring. We will see you back in 3 months. Please arrive arrive 10 minutes prior to your appointment time. This allows time for registration and rooming, and ensures that you are seen on time. If you utilize a service for a ride or get a ridefrom someone else, please take this into account when making arrangements for transportation. -> Thank you for signing up for [employer]! [employer] allows you to quickly, conveniently, and securely communicate with your doctor in order to request medication refills, discuss lab results, schedule/reschedule/cancel appointments, or relay other concerns. [employer] also makes it easy and convenient to complete other necessary paperwork for your visits including signing in for your appointment andcompleting the consent for the virtual visit. If you have any concerns before your next appointment, please contact the clinic or send me a message through [employer]. If you need to reschedule, cancel, or send in outside records, please call our office. (Phone): : [phone] documented in this encounter Ordered Prescriptions Prescription Sig Dispense Quantity Refills Last Filled Start Date End Date methotrexate 2.5 mg tabletIndications: psoriatic arthritis Take 6 tablets (15 mg total) by mouth once a week 24 tablet 3 01/11/2025 6 documented in this encounter Progress Notes * Greg Morse MD - 01/11/2025 9:30 AM CDT [facility] Division of Rheumatology SUBJECTIVE: Rheumatological disease: psoriatic arthritis Rheumatological medication: methotrexate 15 mg weekly with folic acid 1 mg daily Last clinic visit: Jan 24 Dorothea Cortez is a 42 y.o. female with psoriasis, psoriatic arthritis, Raynaud's, low back pain/DDD, tobacco use. At last visit on 01/24/23, patient endorsed persistent pain throughout her whole left middle finger.; denied dactylitis. Overall, she was very satisfied with control of her joint symptoms otherwise. She had 30 minutes of morning stiffness daily. She had continued scalp psoriasis, but otherwise, the rest of her skin lesions had resolved. Did not want to change medications. Interval History - Patient reports she had gallbladder surgery in 03/2023 and was instructed to stop taking MTX prior to surgery. She ran out of refills and did not restart it. - Since being off MTX, has noticed increased L wrist and hand swelling as well as L upper foot swelling. Overall, feels worse off MTX. - She has morning stiffness daily that resolves within 30 minutes. - Also has active psoriasis lesions on bilateral elbows, umbilicus, under breasts, back, and scalp. - She uses MG217 (coal tar) for psoriasis lesions, which has not helped much. - CMP 12/22/24 AST 79, ALT 23, ALP 129. CBC wnl 12/29/24. Disease History Summary of disease (excerpted from Dr. Camarena's note): -Symptom onset: around 2019 -Manifestations: arthralgias of wrists, MCPs, PIPs, DIPs, knees, and ankles with associated psoriasis that has improved with methotrexate -Evaluation: 2022 x-rays showed small erosions in right wrist and left hand -Treatment history: methotrexate (09/2022-03/2023) Past Medical History: Diagnosis Date Anemia Chronic pain Closed fracture of lower end of humerus Elbow fracture - (Added by [facility]) Fracture of forearm 10/20/2020 History of LEEP (loop electrosurgical excision procedure) of cervix complicating 10/13/2012 Overview: In 2004 Normal pap smears since In 2004 Normal pap smears since Joint pain Knee pain, bilateral Left elbow pain Low back pain Lumbar spondylosis Lumbar spondylosis Osteitis pubis (HCC) Ovarian cyst Personal history of diseases of the blood and blood-forming organs and certain disorders involving the immune mechanism History of anemia - (Added by [facility]) Personal history of other specified conditions History of headache - (Added by [facility]) Pruritus Itching - (Added by [facility]) Psoriasis Rib pain Tobacco use complicating 09/27/2014 1/2 ppd Twin delivered Urinary tract infection Current Outpatient Medications Medication Sig Dispense Refill clobetasoL (TEMOVATE) 0.05 % ointment Apply topically 2 (two) times a day Do not use on face or hair 30 g 3 folic acid (FOLVITE) 1 mg tablet Take 1 tablet (1 mg total) by mouth daily 90 tablet 3 HYDROcodone-acetaminophen (NORCO) 7.5-325 mg per tablet Take 1 tablet by mouth every 8 (eight) hours as needed for pain For severe pain only up to max 3 tabs per day. 30 tablet 0 meloxicam (MOBIC) 15 mg tablet Take 1 tablet (15 mg total) by mouth daily WITH FOOD 30 tablet 11 methotrexate 2.5 mg tablet Take 6 tablets by mouth every 7 days 24 tablet 0 No current facility-administered medications for this visit. Allergies Allergen Reactions Watermelon Itching, Redness, Swollen tongue and Other (See comments) Adhesive Tape-Silicones Itching and Unknown makes bruising Past Surgical History: Procedure Laterality Date CERVIX SURGERY CHOLECYSTECTOMY 03/31/2023 [facility] DELIVERY ONLY Section - (Added by [facility]) NH LIG/TRNSXJ FLP TUBE ABDL/VAG APPR UNI/BI Tubal Ligation - (Added by [facility]) Social History Tobacco Use Smoking status: Every Day Current packs/day: 0.50 Average packs/day: 0.5 packs/day for 24.0 years (12.0 ttl pk-yrs) Types: Cigarettes Smokeless tobacco: Never Tobacco comments: Has decrease down to 6 day Substance and Sexual Activity Drug use: Never Comment: denies Sexual activity: Defer Alcohol Use: Unknown (12/06/2024) AUDIT-C Frequency of Alcohol Consumption: 2-4 times a month Average Number of Drinks: Not on file Frequency of Binge Drinking: Not on file Family: patient has children. She underwent a tubal ligation Family History Problem Relation Age of Onset Diabetes Father Family history of diabetes mellitus - (Added by [email or web address] [facility]) Hyperlipidemia Father Family history of hypercholesterolemia - (Added by [email or web address] [facility]) Hypertension Father Family history of hypertension - (Added by [email or web address] Conv) Chronic Pain Father Chronic pain - (Added by [facility]) OBJECTIVE: Physical Examination: Vitals: BP 131/86 Pulse 81 Temp 36.8 ??C (98.2 ??F) Ht 157.5 cm (5' 2) Wt 85.8 kg (189 lb 3.2 oz) BMI 34.61 kg/m?? General: Alert and oriented. Patient in no acute distress. Cardiac: Regular rate. Pulmonary: Normal respiratory effort. Musculoskeletal: There are Rafiq nodes throughout. R>L MCP, PIP, and wrist synovitis. There is no dactylitis. Neurologic: Hearing and comprehension intact. No dysarthria. Skin: There are scaly plaques on the back of the patient's hairline, in her umbilicus, under her breasts, on her elbows. There are no significant nail changes. ASSESSMENT/PLAN: Psoriatic arthritis High risk medications use Disease was reasonably controlled on MTX 15mg weekly. However, she ran out of MTX in 03/2023 and has been off it since then. Wrists and hands swollen with active synovitis on exam 01/11/25. - Restart MTX 15mg weekly and folic acid 1mg daily. - CBC and CMP 01/2025, then q3 months. CMP 12/22/24: AST 79, ALT 23, ALP 129. CBC wnl 12/29/24. - Discussed need for alcohol cessation while on MTX. Patient verbalized understanding. - Will obtain repeat hand and wrist XR to assess for erosions at next visit. Follow-up: 3 months Greg Morse MD Rheumatology Fellow [facility] Cosigned by Myranda Amaya MD at 01/25/2025 9:52 AM CDT Associated attestation - Myranda Amaya MD - 01/25/2025 9:52 AM CDT I have seen and examined the patient. I agree with the findings and plan of care as documented in the resident/fellow's note. My total encounter time on 01/11/2025 was 20 minutes which was spent in the activities documented in the note. This includes time spent prior to the visit and after the visitin direct care of the patient. This time does not include time spent in any separately reportable services. documented in this encounter Plan of Treatment Not on file documented as of this encounter Goals Goal Patient Goal Type Associated Problems Recent Progress Patient-Stated? Author CCM Chronic Pain Care Plan Chronic Care Management On track(2024 10:29 AM CDT) Naa Rios, RN Note: Problem: Chronic Pain Goals: 1. Minimize further functional decline 2. Maximize quality of life 3. Control pain Strategies: - Activity/exercise program recommendation - Conservative stepwise pain medicine strategy with multi-disciplinary approach - Recommend healthy lifestyle strategies and compensatory methods as needed documented as of this encounter Visit Diagnoses Diagnosis Psoriatic arthritis (HCC)- Primary Psoriatic arthropathy documented in this encounter Historical Medications * This list may reflect changes made after this encounter. Medication Sig Dispense Quantity Refills Last Filled Start D ate End Date clindamycin (CLEOCIN) 300 mg capsule 12/22/2024 HYDROcodone-acetaminoph en (NORCO) 5-325 mg per tablet 11/21/2024 added in this encounter Care Teams Collar Runner Relationship Specialty Start Date End Date Anne Joseph NP [address] [place] [address] [place] [address] PCP - General Nurse Practitioner 10/13/20 documented as of this encounter
--- OUTSIDE RECORDS SUMMARY | 2025-01-25 16:27 | XMS_ITS | Encounter Summary ---
Author Organization [facility] Address [address] [place] [address] Care Team Providers Care French Instructor Name Role Phone Alexandria Sinha WEARING APPAREL PRESSER Primary Care Provider Anne Joseph WEARING APPAREL PRESSER Primary Care Provider [phone] Reason for Visit * Reason Onset Date Comments CALL BACK 03/10/2018 Encounter Details Date Type Department Care Team (Late st Contact Info) Description 03/10/2018 Telephone [facility] [place] [facility] [address] [facility] [address] [place] [address] Tamar Hatch MD [address] [facility] [phone] [place] [address] CALL BACK Social History Tobacco Use Types Packs/Day Years Used Date Smoking Tobacco: Every Day Cigarettes 0.5 24 Smokeless Tobacco: Never Comments No Sex and Gender Information Value Date Recorded Sex Assigned at Not on file Legal Sex Female 6:12 AM SURVEYOR HELPER Gender Identity Female 05/26/2020 1:50 PM SURVEYOR HELPER Sexual Orientation Straight 05/26/2020 1: 50 PM SURVEYOR HELPER documented as of this encounter Plan of Treatment Not on file documented as of this encounter Visit Diagnoses Not on filedocumented in this encounter Care Teams French Instructor Relationship Specialty Start Date End Date Alexandria Sinha NP [address] [place] [address] PCP - General 04/25/17 10/12/20 Anne Joseph NP [facility] [address] PCP - General Nurse Practitioner 10/13/20 documented as of this encounter
--- OUTSIDE RECORDS SUMMARY | 2025-01-25 16:27 | XMS_ITS | Clinical Summary ---
Author Organization [facility] Address [facility] [place] [address] Care Team Providers Care Conservation Engineer Name Role Phone Anne Joseph NP Primary Care Provider [phone] Allergies Active Allergy Reactions Criticality Noted Date Comments Adhesive Tape-Silicones Itching,Unknown Low 01/20/2017 makes bruising Watermelon Itching,Redness,Swol l en tongue,Other (See comments) High 11/03/2017 Medications norethindrone (MICRONOR) 0.35 mg tablet Take 1 tablet (0.35 mg total) by mouth daily 12/15/2023 Active meloxicam (MOBIC) 15 mg tabletIndicatio ns:Osteoarthrit is,psoriatic arthritis Take 1 tablet (15 mg total) by mouth daily WITH FOOD 30 tablet 11 03/10/2024 Active HYDROcodone-tulio taminophen (NORCO) 5-325 mg per tablet 11/21/2024 Activ e clindamycin (CLEOCIN) 300 mg capsule 12/22/2024 Active methotrexate 2.5 mg tabletIndicatio ns:psoriatic arthritis Take 6 tablets (15 mg total) by mouth once a week 24 tablet 3 01/11/2025 Active folic acid (FOLVITE) 1 mg tablet Take 1 tablet (1 mg total) by mouth daily 30 tablet 5 01/17/2025 Active Active Problems Problem Noted Date Diagnosed Date Right ureteral stone 11/29/2024 Polyarthralgia 02/06/2022 Chest wall pain 02/06/2022 Bilateral hand pain 02/06/2021 Closed fracture of coronoid process of ulna 05/2020 Right wrist pain 10/20/2020 Disorder of vitamin B12 10/10/2020 Psoriatic arthritis 09/26/2020 Encounter for monitoring opioid maintenance ther apy 08/03/2018 Overview (09/06/2021): Chronic opioid therapy reviewed 09/06/21 Current Analgesics : hydrocodone/apap 7.5/325 Oral Morphine Equil : 22.5 mg MME Plan : continue Urine drug screen 07/25/17-consistent with hydrocodone Urine drug screen 08/03/18-consistent with hydrocodone Tobacco use disorder 11/03/2017 Elbow joint pain 04/08/2016 Lumbar spondylosis 04/08/2016 Chronic pain 04/02/2016 Knee pain, bilateral 04/02/2016 Low back pain 04/02/2016 Psoriasis 02/25/2016 Encounter for preventive health examination 09/19 GBS (group B streptococcus) infection 09/30/2014 Overview (10/20/2020): Overview: On 09/27 On 09/27 Amenorrhea 02/10/2014 Fibrocystic disease of breast 08/05/2011 Overview (11/29/2024): Diffuse Cystic Mastopathy;Recorded Elsewhere: No Location: [facility] Source: EHR Chronic: N Practice ID: [id number] Billable Time: 11:00:00 AM Diffuse Cystic Mastopathy;Recorded Elsewhere: No Location: [facility] Source: EHR Chronic: N Practice ID: [id number] Billable Time: 11:00:00 AM Resolved Problems Problem Noted Date Diagnosed Date Resolved Date Fracture of forearm 10/20/2020 09/07/19 22 Chronic use of opiate drug f or therapeutic purpose 05/04/2018 12/06/2024 Candidiasis 02/03/2015 02/03/2018 Dichorionic diamniotic twin gestation 09/27/2014 02/03/2018 Tobacco use complicating 09/27/2014 09/06/2021 Overview (10/20/2020): 1/2 ppd Cervical shortening complicating 09/20/2014 02/03/2018 History of LEEP (loop electr osurgical excision procedure) of cervix complicating 10/13/2012 10/20/2020 Overview (10/20/2020): Overview: In 2004 Normal pap smears since In 2004 Normal pap smears since Encounters Date Type Department Care Team Description 01/11/2025 9:30 AM CDT Office Visit [facility] Medicine Rheumatology [facility] 5th [place] [address] [place] [address] Greg Morse MD Psoriatic arthritis (HCC) (Primary Dx) 12/06/2024 8:58 AM CDT - 12/06/2024 11:59 PM CDT Hospital Encounter [facility] [facility] [address] [place] [address] [facility] [address] [place] [address] Sirisha Ellsworth NP Psoriatic arthritis (HCC) (Primary Dx) Discharge Disposition: Discharge to home or self care 12/01/2024 Telephone [facility] [address] [place] [address] [facility] [address] [place] [address] Sirisha Ellsworth NP Test Results 11/30/2024 Telephone [facility] [address] [place] [address] [facility] [address] [place] [address] Sirisha Ellsworth NP Test Results 11/29/2024 9:53 AM CDT - 11/29/2024 11:59 PM CDT Hospital Encounter [facility] [address] [place] [address] Chronic use of opiate drug for therapeutic purpose; Psoriatic arthritis (HCC) Discharge Disposition: Discharge to home or self care 11/29/2024 9:30 AM CDT - 11/29/2024 11:59 PM CDT Hospital Encounter [facility] [address] [place] [address] [facility] [address] [place] [address] Sirisha Ellsworth NP Chronic use of opiate drug for therapeutic purpose (Primary Dx); Psoriatic arthritis (HCC) Discharge Disposition: Discharge to home or self care from Last 3 Months Immunizations Immunization Administration Dates Next Due Tdap 04/21/2012,04/21/2012 Surgical History Surgery Date Site/Laterality Comments AK DELIVERY ONLY Section - (Added by TW Conv) AK LIG/TRNSXJ FLP TUBE ABDL/ VAG APPR UNI/BI Tubal Ligation - (Added by TW Conv) CERVIX SURGERY CHOLECYSTECTOMY 03/31/2023 Medical History Medical History Date Comments Closed fracture of lower end of humerus Elbow fracture - (Added by TW Conv) Personal history of diseases of the blood and blood-forming organs and certain disorders involving the immune mechanism History of anemia - (Added b y TW Conv) Personal history of other sp ecified conditions History of headache - (Added by TW Conv) Pruritus Itching - (Added by TW Conv) Left elbow pain Chronic pain Knee pain, bilateral Low back pain Lumbar spondylosis Osteitis pubis Twin delivered Urinary tract infection Psoriasis Lumbar spondylosis Anemia Rib pain History of LEEP (loop electr osurgical excision procedure) of cervix complicating 10/13/2012 Overview: In 2004 Normal pap smears since In 2004 Normal pap smears since Tobacco use complicating 09/27/2014 1/2 ppd Fracture of forearm 10/20/2020 Ovarian cyst Joint pain Family History Medical History Relation Name Comments Chronic Pain Father Chronic pain - (Added by TW Conv) Diabetes Father Family history of diabetes mellitus - (Added by TW Conv) Hyperlipidemia Father Family histor y of hypercholesterolemia - (Added by TW Conv) Hypertension Father Family history of hypertension - (Added by TW Conv) Relation Name Status Comments Father Social History Tobacco Use Types Packs/Day Years [...] on file Legal Sex Female 6:12 AM STORE FACILITY TECHNICIAN Gender Identity Female 05/26/2020 1:50 PM STORE FACILITY TECHNICIAN Sexual Orientation Straight 05/26/2020 1: 50 PM STORE FACILITY TECHNICIAN Obstetrics History Last Filed Vital Signs Vital Sign Reading Time Taken Comments Blood Pressure 131/86 01/11/2025 9:48 AM CDT Pulse 81 01/11/2025 9:48 AM CDT Temperature 36.8 C (98.2 F) 01/11/2025 9:48 AM CDT Respiratory Rate 16 12/06/2024 9:06 AM CDT Oxygen Saturation 97% 12/06/2024 9:06 AM CDT Inhaled Oxygen Concentration - - Weight 85.8 kg (189 lb 3.2 oz) 01/11/2025 9:48 A M CDT Height 157.5 cm (5' 2) 01/11/2025 9:48 AM CDT Body Mass Index 34.61 01/11/2025 9:48 AM CDT Plan of Treatment Health Maintenance Due Date Last Done Comments Breast Cancer Screening-Mammogram 1982 Cervical Cancer Screening 1982 Varicella Vaccines (1 of 2 - 13+ 2-dose series) 1995 Regular Well Visit/Exam 18-64 2000 Pneumococcal vaccine <65 (1 of 2 - PCV) 2001 Zoster Vaccine (1 of 2) 2001 HPV Vaccines (1 - 3-dose SCDM series) 2009 Depression Screening 11/03/2018 11/03/2017, 11/04/19 18 DTaP/Tdap/Td Vaccine (3 - Td or Tdap) 04/21/202204/2012, 04/21/2012 Influenza Vaccine (#1) 2024 Hepatitis B Screening Completed 08/23/2022 Hepatitis C Screening Completed 08/23/2022 Goals Goal Patient Goal Type Associated Problems [...] lifestyle strategies and compensatory methods as needed Procedures Procedure Name Priority Date/Time Associated Diagnosis Comments FENTANYL CONFIRMATION, MS URINE Routine 11/29/2024 9:53 AM CDT Chronic use of opiate drug for therapeutic purpose Psoriatic arthritis (HCC) TARGET OPIOID SCREEN BY DIRECTOR OF OPERATIONS Routine 11/29/2024 9:53 AM CDT Chronic use of opiate drug for therapeutic purpose Psoriatic arthritis (HCC) DRUGS OF ABUSE SCREEN, URINE WITH REFLEX CONFIRMATION Routine 11/29/2024 9:53 AM CDT Chronic use of opiate drug for therapeutic purpose Psoriatic arthritis (HCC) PAIN MANAGEMENT PROFILE Routine 11/29/2024 9:53 AM CDT Chronic use of opiate drug for therapeutic purpose Psoriatic arthritis (HCC) HEPATITIS C ANTIBODY Routine 08/23/2022 10:55 AM CDT Polyarthralgia - Bilateral Psoriatic arthritis (HCC) - Bilateral from Last 3 Months or Most Recently Relevant to Health Maintenance Results * Targeted Opioid Screen, Ur (11/29/2024 9:53 AM CDT) [facility] Pain mgt 6-Acetylmorphine, Ur Not Detected CutOff 10 ng/mL Pain mgt Buprenorphine, Ur Not Detected CutOff 5 ng/mL [facility] Pain mgt Buprenorphine metabolite (Norbuprenorphine), Ur Not Detected CutOff 5 ng/mL [facility] Pain mgt Codeine, Ur Not Detected CutOff 25 ng/mL [facility] Pain mgt Hydrocodone, Ur Detected CutOff 25 ng/mL [facility] Pain mgt Hydromorphone, Ur Not Detected CutOff 25 ng/mL [facility] Pain mgt Methadone, Ur Not Detected CutOff 25 ng/mL [facility] Pain mgt Methadone Metabolite (EDDP), Ur Not Detected CutOff 25 ng/mL [facility] Pain mgt Morphine, Ur Not Detected CutOff 25 ng/mL [facility] Pain mgt Oxycodone, Ur Not Detected CutOff 25 ng/mL [facility] Pain mgt Oxymorphone, Ur Not Detected CutOff 25 ng/mL [facility] Pain mgt Tapentadol, Ur Not Detected CutOff 25 ng/mL [facility] Pain mgt Tramadol, Ur Not Detected CutOff 25 ng/mL [facility] Pain mgt Tramadol metabolite (O-desmethyltramado l), Ur Not Detected CutOff 25 ng/mL [facility] Comment: Interpretive Data This test only detects free, unconjugated drugs. The absence of expected drug(s) and/or metabolite(s) may indicate non-compliance, inappropriate timing of specimen collection relative to the time of dosing, variability in absorption, diluted or adulterated urine, or other testing limitations. Questions concerning interpretation should be directed to the laboratory. The results of this test are to be used only for medical purposes and are not suitable for forensic use. This test was developed and its performance characteristics determined by [facility]. It has not been cleared or approved by the U.S. Food and Drug Administration. Current interpretive data was last revised 18. Pain mgt Naloxone, ur Not Detected cutoff 20 ng/ml [facility] Urine 11/29/2024 9:53 AM CDT 11/29/2024 7:25 PM CDT Sirisha Ellsworth NP LAB URINE ORDERABLES Final Re sult [facility] Department [place] [address] * (ABNORMAL) Fentanyl Confirmation, Urine (11/29/2024 9:53 AM CDT) Pathologist [facility] Fentanyl Conf, Ur Confirmed Positive(A) Cutoff 0.3ng/mL Acetylfentanyl Conf, Ur Does Not Confirm Cutoff 1 ng/mL [facility] Acrylfentanyl Conf, Ur Does Not Confirm Cutoff 1 ng/mL [facility] Furanylfentanyl Conf, Ur Does Not Confirm Cutoff 1 ng/mL [facility] Fentanyl Metabolite (Norfentanyl) Conf, Ur Does Not Confirm CutOff 5 ng/mL [facility] Xylazine MS Does Not Confirm Cutoff 1 ng/mL [facility] Comment: Interpretive Data This test detects the presence or absence of drug compounds using LC Tandem mass spectrometry and is not intended to assess compliance with prescribed medications. While this test is highly specific, false positive and false negative results may occur in very rare circumstances. Contact the laboratory for consultation, if needed. Performance characteristics were determined by the [facility] in a manner consistent with CLIA requirement and has not been cleared or approved by the U.S. Food and Drug Administration. Current interpretive data was last revised 2020. Urine 11/29/2024 9:53 AM CDT 11/29/2024 7:25 PM CDT us Sirisha Ellsworth NP LAB URINE ORDERABLES Final Re sult [facility] Department [place] [address] * (ABNORMAL) Drugs of Abuse Screen, Urine with Reflex Confirmation (11/29/2024 9:53 AM CDT) Amphetamine, ur Not Detected CutOff 500ng/mL Comment: Interpretive Data - Amphetamines: Samples containing greater than 500 ng/mL d-methamphetamine or other cross-reacting amphetamine compounds are reported as positive. Amphetamine immunoassays are subject to significant false positive rates due to cross-reactivity of non-amphetamine drugs. Confirmatory testing required for definitive results. Current Interpretive Data was last reviewed 2022. Barbiturates, ur Not Detected CutOff 200ng/mL [facility] Comment: Interpretive Data - Barbiturates: Samples containing greater than 200 ng/mL secobarbital or other cross-reacting barbiturate compounds are reported as positive. False positive and false negative results are possible. Confirmatory testing required for definitive results. Current Interpretive Data was last reviewed 2022. Benzodiazepines, ur Not Detected CutOff 100ng/mL [facility] Comment: Interpretive Data - Benzodiazepines: Samples containing greater than 100 ng/mL nordiazepam or other cross-reacting compounds are reported as positive. False positive and false negative results are possible. Confirmatory testing required for definitive results. Current Interpretive Data was last reviewed 2022. Cannabinoids, ur Not Detected CutOff 50 ng/mL [facility] Comment: Interpretive Data - Cannabinoids: Samples containing greater than 50 ng/mL delta-9 THC -COOH or other cross- reacting compounds are reported as positive. False positive and false negative results are possible. Confirmatory testing required for definitive results. Current Interpretive Data was last reviewed 2022. Cocaine, ur Not Detected CutOff 150ng/mL [facility] Comment: Interpretive Data - Cocaine: Samples containing greater than 150 ng/mL benzoylecgonine or other cross- reacting compounds are reported as positive. False positive and false negative results are possible. Confirmatory testing required for definitive results. Current Interpretive Data was last reviewed 2022. Fentanyl, Ur Screen Positive, presumptive (A) CutOff 5 ng/mL [facility] Comment: Interpretive Data - Fentanyl: Samples containing greater than 5 ng/mL norfentanyl, fentanyl, or other cross-reacting fentanyl compounds are reported as positive. False positive and false negative results are possible. Confirmatory testing required for definitive results. Current Interpretive Data was last reviewed 2023. Methadone, ur Not Detected CutOff 300ng/mL [facility] Comment: Interpretive Data - Methadone: Samples containing greater than 300 ng/mL d,l-methadone or other cross-reacting compounds are reported as positive. False positive and false negative results are possible. Confirmatory testing required for definitive results. Current Interpretive Data was last reviewed 2022. Opiates, ur Screen Positive, presumptive (A) CutOff 300ng/mL [facility] Comment: Interpretive Data - Opiates: Samples containing greater than 300 ng/mL morphine or other cross-reacting compounds are reported as positive. False positive and false negative results are possible. Confirmatory testing required for definitive results. Current Interpretive Data was last reviewed 2022. Oxycodone, ur Not Detected CutOff 100ng/mL [facility] Comment: Interpretive Data - Oxycodone: Samples containing greater than 100 ng/mL oxycodone or other cross-reacting compounds are reported as positive. False positive and false negative results are possible. Confirmatory testing required for definitive results. Current Interpretive Data was last reviewed 2022. Phencyclidine, ur Not Detected CutOff 25 ng/mL [facility] Comment: Interpretive Data - Phencyclidine: Samples containing greater than 25 ng/mL phencyclidine or other cross-reacting compounds are reported as positive. False positive and false negative results are possible. Confirmatory testing required for definitive results. Current Interpretive Data was last reviewed 2022. Urine Creatinine 240 mg/dL [facility] Comment: Interpretive Data Urine Creatinine: < 10 mg/dL is extremely dilute = or > 10 but < 20 mg/dL is dilute = or > 20 mg/dL is normal Current Interpretive Data was last revised on 2017. Urine 11/29/2024 9:53 AM CDT 11/29/2024 7:25 PM CDT Narrative [facility] - 11/29/2024 7:56 PM CDT Drug of Abuse screening is performed by immunoassay for medical purposes only. This is not to be used for Pain Management purposes. If Detected, confirmation testing will be performed for Amphetamines, Cocaine, Fentanyl, Methadone, Opiates, Oxycodone or Phencyclidine. Sirisha Ellsworth NP LAB URINE ORDERABLES Final Re sult Performing Organization Address [facility] Co de Phone Number [facility] [place] [address] * Hepatitis C antibody (08/23/2022 10:55 AM CDT) Hep C Ab Nonreactive Nonreactive [facility] Comment:Antibodies to HCV no t detected. Does NOT exclude the possibility of recent exposure to HCV. Current interpretive data was last revised on 21 Blood 08/23/2022 10:5 5 AM CDT 08/23/2022 12:13 PM CDT us Guzman Camarena MD PhD LAB MICROBIOL OGY - GENERAL ORDERABLES Edited Result - Final Performing Organization Address [facility] Co de Phone Number [facility] Department [place] [address] from Last 3 Months or Most Recently Relevant to Health Maintenance Insurance [facility] MEDICAID [facility] [employer] Care Teams Conservation Engineer Relationship Specialty Start Date End Date Anne Joseph NP [facility] [place], [place] [id number] PCP - General Nurse Practitioner 10/13/20
--- OUTSIDE RECORDS SUMMARY | 2025-01-25 16:27 | XMS_ITS | Encounter Summary ---
Author Organization [facility] Healthcare Address [address] [place] [address] Care Team Providers Care Paper Products Supervisor Name Role Phone Alexandria Sinha STERILE PRODUCTS PROCESSOR Primary Care Provider Anne Joseph STERILE PRODUCTS PROCESSOR Primary Care Provider [phone] Encounter Details Date Type Department Care Team (Late st Contact Info) Description 09/08/2018 Telephone [facility] [place] [facility] [address] [facility] [address] [place], [place] [id number] Tamar Hatch MD [address] [facility] [id number] [place], [place] [id number] Social History Tobacco Use Types Packs/Day Years Used Date Smoking Tobacco: Every Day Cigarettes 0.5 24 Smokeless Tobacco: Never Comments No Sex and Gender Information Value Date Recorded Sex Assigned at Not on file Legal Sex Female 6:12 AM FOOD PREP WORKER Gender Identity Female 05/26/2020 1:50 PM FOOD PREP WORKER Sexual Orientation Straight 05/26/2020 1: 50 PM FOOD PREP WORKER documented as of this encounter Plan of [...] on filedocumented in this encounter Care Teams Paper Products Supervisor Relationship Specialty Start Date End Date Alexandria Sinha NP [address] [place] [address] PCP - General 04/25/17 10/12/20 Anne Joseph NP [address] [place] [address] [place] [address] PCP - General Nurse Practitioner 10/13/20 documented as of this encounter
[2025-01-25 20:11] LABS: Cannabinoid Screen Urine Negative (Negative)
== END 2025-01-25 15:36 | disposition home or self-care (01) ==
PROVIDERS: PCP Nurse Practitioner Adult Health; Visit Provider Nurse Practitioner Adult Health
DX: Z79.899 Other long term (current) drug therapy (principal)
CPT/HCPCS: 80307; 80361; G0480